=== PATIENT | female | born 1975 | race Caucasian/White ===

== ENCOUNTER 2016-09-10 12:44 | Outpatient (CLI) | payer OTHER ==
--- NOTE | 2016-09-10 14:15 | DIAGNOSTIC IMAGING REPORT ---
PROCEDURE: US COMPLETE PELVIC W/TRANSVAG INDICATION: PELVIC PAIN TECHNIQUE: Transabdominal and endovaginal church scale and color Doppler sonographic images of the female pelvis were obtained. COMPARISON: Pelvic ultrasound 07/05/2014 FINDINGS: TRANSABDOMINAL SCANS: The uterus is of normal size 7.5 x 6 x 4.2 cm Kidneys are normal. TRANSVAGINAL SCANS: The uterus is anteverted. Myometrium is normal. The endometrium measures 9 mm. Nabothian cyst. Right ovary is normal measuring 3.3 x 2.2 x 1.9 cm. Good blood flow noted. The adnexal vessels on the right are prominent. The left ovary is normal measuring 3.7 x 2.7 x 2.1 cm. Good blood flow noted. There is an IUD in correct position. IMPRESSION: 1. Normal uterus and ovaries and kidneys.
== END 2016-09-10 23:00 | disposition home or self-care (01) ==
LOC: US SRH 12:44
DX: R10.2 Pelvic and perineal pain (principal)